=== PATIENT | male | born 1985 | race Caucasian/White ===

== ENCOUNTER 2019-08-14 21:36 | Emergency (ER) | payer BC, OTHER ==
[~2019-08-14] VITALS: Ht 198.1 cm; Wt 109.8 kg
--- NOTE | ~2019-08-14 | EKG ---
[facility] [place] [address] ELECTROCARDIOGRAM REPORT Name: IVON MITCHELL Room #: DEP [facility].[place]#: [id number] Admission: 08/14/19 Attend Phys: Discharge: 08/14/19 Date of : 89 Report #: [id number] THIS REPORT FOR: cc: Noah Low James A. 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
[2019-08-14 22:16] LABS: ABSOLUTE NEUTROPHILS 4.9 thou/uL (1.4-8.2); BASOPHILS 0.3 % (0.0-2.0); EOSINOPHILS 0.5 % (0.0-3.0); HEMATOCRIT 45.6 % (42.0-52.0); HEMOGLOBIN 15.2 gm/dL (14.0-18.0); LYMPHOCYTES 14.6 % (24.0-44.0); MCH 28.3 pg (26.0-34.0); MCHC 33.4 g/dL (28.0-37.0); MCV 84.8 fL (80.0-100.0); MONOCYTES 7.1 % (1.0-8.0); PLATELET COUNT 165 thou/uL (150-400); POLYS 77.5 % (36.0-66.0); RBC 5.38 mil/uL (4.50-6.00); WBC 6.3 thou/uL (4.0-11.0)
[2019-08-14 22:20] LABS: ANION GAP 7 mmol/L (7-16); BUN 11 mg/dL (7-18); CALCIUM 9.4 mg/dL (8.5-10.1); CHLORIDE 101 mmol/L (98-107); CO2 29 mmol/L (21-32); CREATININE 1.1 mg/dL (0.7-1.3); GLUCOSE 108 mg/dL (74-106); POTASSIUM 3.7 mmol/L (3.5-5.1); SODIUM 137 mmol/L (136-145)
[2019-08-14 22:30] LABS: ALBUMIN 4.4 g/dL (3.4-5.0); LIPASE 104 U/L (73-393); SGOT 15 U/L (15-37); SGPT 20 U/L (30-65); TOTAL BILIRUBIN 0.6 mg/dL (<0.1-1.0); TROPONIN-I <0.06 ng/mL (<0.06)
[2019-08-14] MEDS ORDERED: IBUPROFEN 400400 M2 PO (23:10)
[2019-08-14 23:23] VITALS: BP 122/79
== END 2019-08-14 23:35 | disposition home or self-care (01) ==
LOC: ER 21:36
PROVIDERS: Emergency Medicine Emergency Medical Services
DX: R07.89 Other chest pain (principal); R50.9 Fever, unspecified; R19.7 Diarrhea, unspecified